=== PATIENT | female | born 1945 | race Caucasian/White ===

== ENCOUNTER 2023-04-30 11:43 | Inpatient (IN) | payer MEDICARE, OTHER ==
[~2023-04-30] VITALS: Ht 154.9 cm; Wt 41.6 kg
[2023-04-30 12:10] VITALS: PULSE 88; RESP 18; O2SAT 96
[2023-04-30 14:09] LABS: Alkaline Phosphatase 84 U/L (46-116); Anion Gap 6 (5-15); Aspartate Aminotransferase 12 U/L (13-40); BUN/Creatinine Ratio 16.7 (10.0-20.0); Bilirubin, Total 0.2 mg/dL (0.2-1.0); Blood Urea Nitrogen 16 mg/dL (9-23); Carbon Dioxide 29 mmol/L (20-30); Chloride 104 mmol/L (98-107); Glucose 103 mg/dL (74-106); Potassium 4.2 mmol/L (3.5-5.1); Sodium 139 mmol/L (136-145); Total Protein 7.2 g/dL (5.7-8.2)
[2023-04-30 14:11] LABS: Alanine Aminotransferase < 9 U/L (7-40)
[2023-04-30 14:17] LABS: Basophils # (auto) 0.1 10 ^3/uL (0-0.2); Basophils % (auto) 0.4 % (0.0-2.0); Eosinophils # (auto) 0 10 ^3/uL (0-0.8); Eosinophils % (auto) 0.1 % (0.0-7.0); Hemoglobin 11.1 g/dL (12.2-16.2); Lymphocytes # (auto) 0.3 10 ^3/uL (0.4-5.4); Lymphocytes % (auto) 2.6 % (10.0-50.0); Mean Corpuscular Hemoglobin 28.2 pg (28.0-32.0); Mean Corpuscular Hgb Conc. 31.7 g/dL (32.0-36.0); Monocytes # (auto) 0.4 10 ^3/uL (0-1.3); Monocytes % (auto) 3.3 % (0.0-12.0); Neutrophils % (auto) 93.6 % (37.0-80.0); Red Blood Cells 3.93 10^6/uL (4.0-5.20); Red Cell Distribution Width 13.9 % (11.8-14.3); White Blood Cell 12.8 10^3/uL (4.4-10.8)
[2023-04-30] MEDS ORDERED: cefTRIAXone 1GM/50ML D5W 50 ML IV ONE (15:45)
[2023-04-30] MEDS ORDERED: MORPHINE SULFATE INJ 2 MG/ml SYRG IV PRN (16:00)
[2023-04-30] MEDS ORDERED: SODIUM CHLORIDE 0.9% 1,000 ML IV ONE (16:00)
[2023-04-30] MEDS ORDERED: NITROGLYCERIN 0.4 MG SL TAB SL PRN (16:00)
[2023-04-30 19:45] VITALS: PULSE 109; RESP 31; O2SAT 95
[2023-05-01 07:38] VITALS: PULSE 68; RESP 18; O2SAT 95
[2023-05-01] MEDS: cefTRIAXone 1GM/50ML D5W 50 ML IV SCH (09:46)
[2023-05-01] MEDS ORDERED: amLODIPine BESYLATE 5 MG TAB PO ONE (14:15)
[2023-05-01] MEDS ORDERED: amLODIPine BESYLATE 5 MG TAB ONE (14:43)
[2023-05-01 14:48] LABS: Basophils # (auto) 0 10 ^3/uL (0-0.2); Basophils % (auto) 0.5 % (0.0-2.0); Eosinophils # (auto) 0 10 ^3/uL (0-0.8); Eosinophils % (auto) 0.4 % (0.0-7.0); Hematocrit 34.5 % (36.0-46.0); Lymphocytes # (auto) 1.3 10 ^3/uL (0.4-5.4); Lymphocytes % (auto) 15.7 % (10.0-50.0); Mean Corpuscular Hemoglobin 28.9 pg (28.0-32.0); Mean Corpuscular Hgb Conc. 31.8 g/dL (32.0-36.0); Mean Corpuscular Volume 90.9 fL (80.0-100.0); Monocytes # (auto) 0.6 10 ^3/uL (0-1.3); Monocytes % (auto) 7.1 % (0.0-12.0); Neutrophils # (auto) 6.5 10 ^3/uL (1.6-8.6); Neutrophils % (auto) 76.3 % (37.0-80.0); Nucleated Red Blood Cells % 0.2 %; Red Blood Cells 3.79 10^6/uL (4.0-5.20); Red Cell Distribution Width 13.9 % (11.8-14.3); White Blood Cell 8.5 10^3/uL (4.4-10.8)
[2023-05-01] MEDS: Ensure Enlive Strawberry 8oz Bottle PO SCH (18:00)
[2023-05-01] MEDS: SODIUM CHLORIDE 0.9% 1,000 ML IV SCH (18:19)
[2023-05-01 18:25] VITALS: BP 167/93; PULSE 54; PULSE 61; RESP 16; RESP 22; TEMP 98.1; O2SAT 95
[2023-05-01 20:00] VITALS: PULSE 109; RESP 18; O2SAT 94
[2023-05-01 22:00] VITALS: BP 169/89; PULSE 100; RESP 16; TEMP 98.1; O2SAT 90
[2023-05-02] VITALS (7 sets, daily range): BP systolic 104–128; BP diastolic 54–69; PULSE 78–117; RESP 16–20; TEMP 97.4–98.3; O2SAT 93–95
[2023-05-02 06:21] LABS: Basophils # (auto) 0 10 ^3/uL (0-0.2); Basophils % (auto) 0.5 % (0.0-2.0); Eosinophils # (auto) 0.1 10 ^3/uL (0-0.8); Eosinophils % (auto) 0.8 % (0.0-7.0); Hematocrit 34.5 % (36.0-46.0); Hemoglobin 10.9 g/dL (12.2-16.2); Lymphocytes # (auto) 0.7 10 ^3/uL (0.4-5.4); Mean Corpuscular Hemoglobin 28.6 pg (28.0-32.0); Mean Corpuscular Hgb Conc. 31.7 g/dL (32.0-36.0); Mean Corpuscular Volume 90.3 fL (80.0-100.0); Monocytes # (auto) 0.7 10 ^3/uL (0-1.3); Monocytes % (auto) 9.4 % (0.0-12.0); Neutrophils # (auto) 6.2 10 ^3/uL (1.6-8.6); Neutrophils % (auto) 80.3 % (37.0-80.0); Nucleated Red Blood Cells % 0.1 %; Red Blood Cells 3.82 10^6/uL (4.0-5.20); Red Cell Distribution Width 13.8 % (11.8-14.3); White Blood Cell 7.8 10^3/uL (4.4-10.8)
[2023-05-02 06:24] LABS: Calcium 8.6 mg/dL (8.7-10.4); Chloride 104 mmol/L (98-107); Potassium 3.7 mmol/L (3.5-5.1); Sodium 136 mmol/L (136-145)
[2023-05-02 06:25] LABS: Anion Gap 9 (5-15); Carbon Dioxide 23 mmol/L (20-30)
[2023-05-02 06:30] LABS: BUN/Creatinine Ratio 14.5 (10.0-20.0); Blood Urea Nitrogen 12 mg/dL (9-23); Glucose 93 mg/dL (74-106)
[2023-05-02] MEDS: Ensure Enlive Strawberry 8oz Bottle PO SCH ×3 (08:00→18:14)
[2023-05-02] MEDS: SODIUM CHLORIDE 0.9% 1,000 ML IV SCH ×2 (10:00→16:55)
[2023-05-02] MEDS: cefTRIAXone 1GM/50ML D5W 50 ML IV SCH (10:21)
[2023-05-02] MEDS: amLODIPine BESYLATE 5 MG TAB PO SCH (10:21)
[2023-05-02] MEDS ORDERED: MORPHINE SULFATE INJ 2 MG/ml SYRG IV PRN (14:00)
[2023-05-02 14:47] LABS: Urine Bacteria MANY /hpf (None Seen); Urine Blood 2+ /uL (Negative); Urine Clarity CLOUDY (Clear); Urine Color Red (Yellow); Urine Mucus MANY (None Seen); Urine Protein, UAD 2+ (Negative); Urine Urobilinogen Normal (Negative); Urine WBC 612 /hpf (0 - 5); Urine WBC Clumps PRESENT /hpf (None Seen); Urine pH 6.5 (5.0-8.0)
[2023-05-02 14:52] LABS: Urine Specific Gravity 1.024 (1.001-1.035)
[2023-05-02] MEDS: ACETAMINOPHEN 500 MG TAB PO PRN (15:20)
[2023-05-02] MEDS ORDERED: ACETAMINOPHEN 500 MG TAB PO ONE (15:20)
[2023-05-02] MEDS ORDERED: IOHEXOL 300 MG/ML 100ML BOTTLE IJ ONE (16:34)
[2023-05-03] VITALS (7 sets, daily range): BP systolic 123–142; BP diastolic 66–78; PULSE 92–126; RESP 14–20; TEMP 97.6–98.8; O2SAT 94–98
[2023-05-03] MEDS: SODIUM CHLORIDE 0.9% 1,000 ML IV SCH (00:30)
[2023-05-03 05:49] LABS: Basophils # (auto) 0 10 ^3/uL (0-0.2); Basophils % (auto) 0.4 % (0.0-2.0); Eosinophils # (auto) 0.1 10 ^3/uL (0-0.8); Eosinophils % (auto) 0.8 % (0.0-7.0); Hematocrit 28.6 % (36.0-46.0); Hemoglobin 9.5 g/dL (12.2-16.2); Lymphocytes % (auto) 11.3 % (10.0-50.0); Mean Corpuscular Hemoglobin 28.8 pg (28.0-32.0); Mean Corpuscular Volume 87.2 fL (80.0-100.0); Monocytes # (auto) 0.7 10 ^3/uL (0-1.3); Monocytes % (auto) 8.1 % (0.0-12.0); Neutrophils # (auto) 6.8 10 ^3/uL (1.6-8.6); Neutrophils % (auto) 79.4 % (37.0-80.0); Nucleated Red Blood Cells % 0.1 %; Red Blood Cells 3.28 10^6/uL (4.0-5.20); Red Cell Distribution Width 13.6 % (11.8-14.3); White Blood Cell 8.6 10^3/uL (4.4-10.8)
[2023-05-03 06:06] LABS: Chloride 106 mmol/L (98-107); Potassium 3.8 mmol/L (3.5-5.1); Sodium 138 mmol/L (136-145)
[2023-05-03 06:08] LABS: Anion Gap 5 (5-15); Calcium 8.3 mg/dL (8.7-10.4); Carbon Dioxide 27 mmol/L (20-30)
[2023-05-03 06:13] LABS: Blood Urea Nitrogen 15 mg/dL (9-23); Glucose 107 mg/dL (74-106)
[2023-05-03] MEDS: Ensure Enlive Strawberry 8oz Bottle PO SCH ×3 (08:00→18:00)
[2023-05-03] MEDS ORDERED: HYDROcodone-ACET 5/325MG TAB ONE ×2 (11:35→17:40)
[2023-05-03] MEDS ORDERED: amLODIPine BESYLATE 5 MG TAB ONE (11:35)
[2023-05-03] MEDS ORDERED: cefTRIAXone 1GM/50ML D5W 50 ML IV ONE (11:36)
[2023-05-03] MEDS: amLODIPine BESYLATE 5 MG TAB PO SCH (11:39)
[2023-05-03] MEDS: cefTRIAXone 1GM/50ML D5W 50 ML IV SCH (11:40)
[2023-05-03] MEDS: HYDROcodone-ACET 5/325MG TAB PO PRN ×2 (11:40→17:41)
[2023-05-04] VITALS (7 sets, daily range): BP systolic 128–134; BP diastolic 62–72; PULSE 90–104; RESP 17–18; TEMP 98.3–99.1; O2SAT 93–96
[2023-05-04] MEDS: Ensure Enlive Strawberry 8oz Bottle PO SCH ×3 (08:00→20:32)
[2023-05-04] MEDS: amLODIPine BESYLATE 5 MG TAB PO SCH (10:26)
[2023-05-04] MEDS: cefTRIAXone 1GM/50ML D5W 50 ML IV SCH (10:26)
[2023-05-04] MEDS: SODIUM CHLORIDE 0.9% 1,000 ML IV SCH ×2 (10:27→10:29)
[2023-05-04] MEDS: HYDROcodone-ACET 5/325MG TAB PO PRN (12:17)
[2023-05-04] MEDS: ACETAMINOPHEN 500 MG TAB PO PRN (16:37)
[2023-05-05] VITALS (7 sets, daily range): BP systolic 112–128; BP diastolic 57–72; PULSE 92–113; RESP 17–18; TEMP 98.1–98.3; O2SAT 92–93
[2023-05-05] MEDS: SODIUM CHLORIDE 0.9% 1,000 ML IV SCH ×2 (01:37→16:52)
[2023-05-05] MEDS: Ensure Enlive Strawberry 8oz Bottle PO SCH ×3 (08:00→18:00)
[2023-05-05 09:20] LABS: Basophils # (auto) 0 10 ^3/uL (0-0.2); Basophils % (auto) 0.6 % (0.0-2.0); Eosinophils # (auto) 0.2 10 ^3/uL (0-0.8); Hemoglobin 10.2 g/dL (12.2-16.2); Lymphocytes # (auto) 0.9 10 ^3/uL (0.4-5.4); Lymphocytes % (auto) 11.9 % (10.0-50.0); Mean Corpuscular Volume 88.1 fL (80.0-100.0); Monocytes # (auto) 0.5 10 ^3/uL (0-1.3); Monocytes % (auto) 7.1 % (0.0-12.0); Neutrophils % (auto) 78.4 % (37.0-80.0); Nucleated Red Blood Cells % 0.1 %; Red Blood Cells 3.52 10^6/uL (4.0-5.20); Red Cell Distribution Width 13.7 % (11.8-14.3); White Blood Cell 7.7 10^3/uL (4.4-10.8)
[2023-05-05] MEDS ORDERED: IOTHALAMATE MEGLUMINE INJ 250ML BOT UR ONE (09:34)
[2023-05-05 09:39] LABS: Chloride 102 mmol/L (98-107); Potassium 4.6 mmol/L (3.5-5.1); Sodium 137 mmol/L (136-145)
[2023-05-05 09:40] LABS: Anion Gap 6 (5-15); Carbon Dioxide 29 mmol/L (20-30)
[2023-05-05 09:45] LABS: BUN/Creatinine Ratio 17.2 (10.0-20.0); Blood Urea Nitrogen 15 mg/dL (9-23); Glucose 136 mg/dL (74-106)
[2023-05-05] MEDS: cefTRIAXone 1GM/50ML D5W 50 ML IV SCH (11:05)
[2023-05-05] MEDS: ACETAMINOPHEN 500 MG TAB PO PRN (11:05)
[2023-05-05] MEDS: amLODIPine BESYLATE 5 MG TAB PO SCH (11:18)
[2023-05-05] MEDS: metroNIDAZOLE 500MG/100ML 100 ML IV SCH ×2 (16:52→21:26)
[2023-05-06] MEDS: HYDROcodone-ACET 5/325MG TAB PO PRN ×2 (00:34→20:47)
[2023-05-06] MEDS: SODIUM CHLORIDE 0.9% 1,000 ML IV SCH ×3 (04:38→14:15)
[2023-05-06 05:00] VITALS: BP 119/67; PULSE 87; RESP 20; TEMP 98.3; O2SAT 94
[2023-05-06] MEDS: metroNIDAZOLE 500MG/100ML 100 ML IV SCH ×3 (05:16→21:28)
[2023-05-06 06:17] LABS: Basophils # (auto) 0 10 ^3/uL (0-0.2); Basophils % (auto) 0.7 % (0.0-2.0); Eosinophils # (auto) 0.1 10 ^3/uL (0-0.8); Hematocrit 29.1 % (36.0-46.0); Hemoglobin 9.6 g/dL (12.2-16.2); Lymphocytes # (auto) 1.2 10 ^3/uL (0.4-5.4); Lymphocytes % (auto) 18.1 % (10.0-50.0); Mean Corpuscular Hgb Conc. 32.9 g/dL (32.0-36.0); Monocytes # (auto) 0.6 10 ^3/uL (0-1.3); Monocytes % (auto) 8.8 % (0.0-12.0); Neutrophils # (auto) 4.8 10 ^3/uL (1.6-8.6); Neutrophils % (auto) 70.4 % (37.0-80.0); Red Blood Cells 3.31 10^6/uL (4.0-5.20); Red Cell Distribution Width 13.7 % (11.8-14.3); White Blood Cell 6.8 10^3/uL (4.4-10.8)
[2023-05-06 06:26] LABS: Anion Gap 6 (5-15); Carbon Dioxide 27 mmol/L (20-30); Chloride 105 mmol/L (98-107); Potassium 4.2 mmol/L (3.5-5.1); Sodium 138 mmol/L (136-145)
[2023-05-06 06:27] LABS: Calcium 8.9 mg/dL (8.5-10.1)
[2023-05-06 06:32] LABS: Glucose 100 mg/dL (74-106)
[2023-05-06 06:33] LABS: BUN/Creatinine Ratio 19.8 (10.0-20.0); Blood Urea Nitrogen 17 mg/dL (9-23)
[2023-05-06 08:00] VITALS: BP 119/69; PULSE 93; RESP 16; TEMP 98.4; O2SAT 95
[2023-05-06] MEDS: Ensure Enlive Strawberry 8oz Bottle PO SCH ×3 (08:00→18:00)
[2023-05-06] MEDS: cefTRIAXone 1GM/50ML D5W 50 ML IV SCH (09:05)
[2023-05-06] MEDS: PHENAZOPYRIDINE HCL 100 MG TAB PO SCH (09:06)
[2023-05-06] MEDS: amLODIPine BESYLATE 5 MG TAB PO SCH (09:08)
[2023-05-06] MEDS: ACETAMINOPHEN 500 MG TAB PO PRN (11:14)
[2023-05-06 12:00] VITALS: BP 107/56; PULSE 102; RESP 16; TEMP 98.5; O2SAT 93
[2023-05-06 16:46] VITALS: BP 129/68; PULSE 102; RESP 16; TEMP 97.9; O2SAT 92
[2023-05-06 20:00] VITALS: BP 124/65; PULSE 105; RESP 20; TEMP 98.5; O2SAT 93
[2023-05-07] VITALS (7 sets, daily range): BP systolic 107–132; BP diastolic 56–64; PULSE 94–104; RESP 18–20; TEMP 97.7–98.8; O2SAT 92–98
[2023-05-07] MEDS: SODIUM CHLORIDE 0.9% 1,000 ML IV SCH ×2 (03:35→16:55)
[2023-05-07] MEDS: metroNIDAZOLE 500MG/100ML 100 ML IV SCH ×3 (05:32→21:58)
[2023-05-07 06:02] LABS: Basophils # (auto) 0.1 10 ^3/uL (0-0.2); Basophils % (auto) 0.6 % (0.0-2.0); Eosinophils # (auto) 0.2 10 ^3/uL (0-0.8); Eosinophils % (auto) 2.3 % (0.0-7.0); Hematocrit 27.9 % (36.0-46.0); Hemoglobin 9.3 g/dL (12.2-16.2); Lymphocytes # (auto) 1.1 10 ^3/uL (0.4-5.4); Lymphocytes % (auto) 11.5 % (10.0-50.0); Mean Corpuscular Hemoglobin 29.3 pg (28.0-32.0); Mean Corpuscular Hgb Conc. 33.2 g/dL (32.0-36.0); Mean Corpuscular Volume 88.2 fL (80.0-100.0); Monocytes # (auto) 0.7 10 ^3/uL (0-1.3); Monocytes % (auto) 7.3 % (0.0-12.0); Neutrophils # (auto) 7.2 10 ^3/uL (1.6-8.6); Neutrophils % (auto) 78.3 % (37.0-80.0); Nucleated Red Blood Cells % 0.1 %; Red Blood Cells 3.17 10^6/uL (4.0-5.20); Red Cell Distribution Width 13.5 % (11.8-14.3); White Blood Cell 9.2 10^3/uL (4.4-10.8)
[2023-05-07 06:15] LABS: Chloride 103 mmol/L (98-107); Potassium 4.2 mmol/L (3.5-5.1); Sodium 136 mmol/L (136-145)
[2023-05-07 06:16] LABS: Anion Gap 7 (5-15); Carbon Dioxide 26 mmol/L (20-30)
[2023-05-07 06:17] LABS: Calcium 8.8 mg/dL (8.5-10.1)
[2023-05-07 06:21] LABS: Glucose 98 mg/dL (74-106)
[2023-05-07 06:22] LABS: Blood Urea Nitrogen 16 mg/dL (9-23)
[2023-05-07] MEDS: Ensure Enlive Strawberry 8oz Bottle PO SCH ×3 (08:00→17:23)
[2023-05-07] MEDS: cefTRIAXone 1GM/50ML D5W 50 ML IV SCH (09:41)
[2023-05-07] MEDS: amLODIPine BESYLATE 5 MG TAB PO SCH (09:41)
[2023-05-07] MEDS: PHENAZOPYRIDINE HCL 100 MG TAB PO SCH (09:42)
[2023-05-07] MEDS ORDERED: IOTHALAMATE MEGLUMINE INJ 250ML BOT UR ONE ×2 (10:51→11:59)
[2023-05-08 05:00] VITALS: BP 128/60; PULSE 88; RESP 18; TEMP 98; O2SAT 96
[2023-05-08] MEDS: metroNIDAZOLE 500MG/100ML 100 ML IV SCH ×3 (05:15→21:12)
[2023-05-08] MEDS: SODIUM CHLORIDE 0.9% 1,000 ML IV SCH ×2 (06:45→21:12)
[2023-05-08 06:57] LABS: Chloride 103 mmol/L (98-107); Sodium 136 mmol/L (136-145)
[2023-05-08 06:58] LABS: Anion Gap 8 (5-15); Basophils # (auto) 0 10 ^3/uL (0-0.2); Basophils % (auto) 0.6 % (0.0-2.0); Carbon Dioxide 25 mmol/L (20-30); Eosinophils # (auto) 0.1 10 ^3/uL (0-0.8); Eosinophils % (auto) 1.9 % (0.0-7.0); Hematocrit 28.6 % (36.0-46.0); Hemoglobin 9.4 g/dL (12.2-16.2); Lymphocytes # (auto) 1.1 10 ^3/uL (0.4-5.4); Lymphocytes % (auto) 14.9 % (10.0-50.0); Mean Corpuscular Hemoglobin 28.8 pg (28.0-32.0); Mean Corpuscular Volume 87.4 fL (80.0-100.0); Monocytes # (auto) 0.7 10 ^3/uL (0-1.3); Monocytes % (auto) 9.4 % (0.0-12.0); Neutrophils # (auto) 5.5 10 ^3/uL (1.6-8.6); Neutrophils % (auto) 73.2 % (37.0-80.0); Nucleated Red Blood Cells % 0.1 %; Red Blood Cells 3.27 10^6/uL (4.0-5.20); Red Cell Distribution Width 13.5 % (11.8-14.3); White Blood Cell 7.6 10^3/uL (4.4-10.8)
[2023-05-08 06:59] LABS: Calcium 8.7 mg/dL (8.5-10.1)
[2023-05-08 07:03] LABS: BUN/Creatinine Ratio 18.8 (10.0-20.0); Blood Urea Nitrogen 15 mg/dL (9-23); Glucose 91 mg/dL (74-106)
[2023-05-08 08:00] VITALS: BP 111/54; PULSE 87; RESP 17; TEMP 98.4
[2023-05-08] MEDS: Ensure Enlive Strawberry 8oz Bottle PO SCH ×3 (08:00→18:07)
[2023-05-08 09:00] VITALS: BP 111/54; PULSE 92; RESP 17; TEMP 98.4; O2SAT 92
[2023-05-08] MEDS: cefTRIAXone 1GM/50ML D5W 50 ML IV SCH (09:12)
[2023-05-08] MEDS: PHENAZOPYRIDINE HCL 100 MG TAB PO SCH (09:12)
[2023-05-08] MEDS: amLODIPine BESYLATE 5 MG TAB PO SCH (09:13)
[2023-05-08 13:00] VITALS: BP 105/63; PULSE 103; RESP 16; TEMP 98.6; O2SAT 91
[2023-05-08] MEDS ORDERED: HYDROcodone-ACET 5/325MG TAB ONE (18:06)
[2023-05-08] MEDS: HYDROcodone-ACET 5/325MG TAB PO PRN (18:07)
[2023-05-08 20:00] VITALS: PULSE 104; PULSE 82; RESP 18
[2023-05-08 21:59] VITALS: BP 106/61; PULSE 82; RESP 18; TEMP 98.2; O2SAT 94
[2023-05-09] VITALS (7 sets, daily range): BP systolic 105–118; BP diastolic 57–70; PULSE 78–109; RESP 17–20; TEMP 97.5–98.7; O2SAT 92–97
[2023-05-09] MEDS: metroNIDAZOLE 500MG/100ML 100 ML IV SCH ×3 (05:14→21:22)
[2023-05-09] MEDS: Ensure Enlive Strawberry 8oz Bottle PO SCH ×3 (08:00→15:02)
[2023-05-09] MEDS: cefTRIAXone 1GM/50ML D5W 50 ML IV SCH (09:49)
[2023-05-09] MEDS: amLODIPine BESYLATE 5 MG TAB PO SCH (09:50)
[2023-05-09] MEDS: PHENAZOPYRIDINE HCL 100 MG TAB PO SCH (09:50)
[2023-05-09] MEDS: SODIUM CHLORIDE 0.9% 1,000 ML IV SCH ×2 (09:51→19:53)
[2023-05-09] MEDS ORDERED: GASTROGRAFIN 120 ML SOL ONE (11:51)
[2023-05-10 05:00] VITALS: BP 111/61; PULSE 99; RESP 17; TEMP 98.6; O2SAT 93
[2023-05-10] MEDS: metroNIDAZOLE 500MG/100ML 100 ML IV SCH ×3 (05:28→21:04)
[2023-05-10 06:53] LABS: Basophils # (auto) 0.1 10 ^3/uL (0-0.2); Basophils % (auto) 0.9 % (0.0-2.0); Eosinophils # (auto) 0.1 10 ^3/uL (0-0.8); Eosinophils % (auto) 1.3 % (0.0-7.0); Hematocrit 28.8 % (36.0-46.0); Hemoglobin 9.2 g/dL (12.2-16.2); Lymphocytes # (auto) 1.3 10 ^3/uL (0.4-5.4); Mean Corpuscular Hemoglobin 28.2 pg (28.0-32.0); Mean Corpuscular Hgb Conc. 32.1 g/dL (32.0-36.0); Monocytes # (auto) 0.8 10 ^3/uL (0-1.3); Monocytes % (auto) 10.4 % (0.0-12.0); Neutrophils # (auto) 5.8 10 ^3/uL (1.6-8.6); Neutrophils % (auto) 71.4 % (37.0-80.0); Nucleated Red Blood Cells % 0.2 %; Red Blood Cells 3.27 10^6/uL (4.0-5.20); Red Cell Distribution Width 13.6 % (11.8-14.3); White Blood Cell 8.1 10^3/uL (4.4-10.8)
[2023-05-10 07:55] LABS: Anion Gap 9 (5-15); BUN/Creatinine Ratio 17.9 (10.0-20.0); Blood Urea Nitrogen 14 mg/dL (9-23); Calcium 8.6 mg/dL (8.5-10.1); Carbon Dioxide 23 mmol/L (20-30); Chloride 106 mmol/L (98-107); Glucose 92 mg/dL (74-106); Potassium 4.2 mmol/L (3.5-5.1); Sodium 138 mmol/L (136-145)
[2023-05-10 08:00] VITALS: PULSE 87; RESP 18; O2SAT 92
[2023-05-10] MEDS: Ensure Enlive Strawberry 8oz Bottle PO SCH ×3 (08:00→18:11)
[2023-05-10 08:55] VITALS: BP 103/64; PULSE 88; RESP 14; TEMP 98.5; O2SAT 96
[2023-05-10] MEDS: PHENAZOPYRIDINE HCL 100 MG TAB PO SCH (09:14)
[2023-05-10] MEDS: cefTRIAXone 1GM/50ML D5W 50 ML IV SCH (09:15)
[2023-05-10] MEDS: SODIUM CHLORIDE 0.9% 1,000 ML IV SCH (09:20)
[2023-05-10] MEDS: amLODIPine BESYLATE 5 MG TAB PO SCH (10:00)
[2023-05-10 13:00] VITALS: BP 113/59; PULSE 87; RESP 16; TEMP 98.2; O2SAT 92
[2023-05-10] MEDS: HYDROcodone-ACET 5/325MG TAB PO PRN (15:40)
[2023-05-10 17:00] VITALS: BP 100/54; PULSE 100; RESP 14; TEMP 98.6; O2SAT 95
[2023-05-10 20:00] VITALS: PULSE 100; PULSE 98; RESP 18; O2SAT 100
[2023-05-11] MEDS: SODIUM CHLORIDE 0.9% 1,000 ML IV SCH ×2 (00:18→14:20)
[2023-05-11 05:00] VITALS: BP 116/66; PULSE 96; RESP 18; TEMP 98.3; O2SAT 92
[2023-05-11] MEDS: metroNIDAZOLE 500MG/100ML 100 ML IV SCH ×3 (05:51→21:15)
[2023-05-11 08:00] VITALS: PULSE 84; RESP 18; O2SAT 92
[2023-05-11] MEDS: Ensure Enlive Strawberry 8oz Bottle PO SCH ×3 (08:00→18:00)
[2023-05-11] MEDS: cefTRIAXone 1GM/50ML D5W 50 ML IV SCH (08:44)
[2023-05-11] MEDS: PHENAZOPYRIDINE HCL 100 MG TAB PO SCH (08:58)
[2023-05-11] MEDS: amLODIPine BESYLATE 5 MG TAB PO SCH (08:58)
[2023-05-11 09:00] VITALS: BP 109/56; PULSE 86; RESP 19; TEMP 98.1; O2SAT 93
[2023-05-11 17:00] VITALS: BP 109/60; PULSE 98; RESP 19; TEMP 98.4; O2SAT 99
[2023-05-11] MEDS: HYDROcodone-ACET 5/325MG TAB PO PRN (18:40)
[2023-05-11 20:00] VITALS: PULSE 103; RESP 18; O2SAT 91
[2023-05-11 22:00] VITALS: BP 116/62; PULSE 104; RESP 18; TEMP 98.4; O2SAT 91
[2023-05-12] VITALS (7 sets, daily range): BP systolic 103–136; BP diastolic 52–66; PULSE 90–110; RESP 16–18; TEMP 97.4–98.7; O2SAT 90–98
[2023-05-12] MEDS: SODIUM CHLORIDE 0.9% 1,000 ML IV SCH ×2 (05:34→17:40)
[2023-05-12] MEDS: metroNIDAZOLE 500MG/100ML 100 ML IV SCH ×3 (05:35→21:56)
[2023-05-12] MEDS: Ensure Enlive Strawberry 8oz Bottle PO SCH ×3 (08:00→18:12)
[2023-05-12] MEDS: PHENAZOPYRIDINE HCL 100 MG TAB PO SCH (09:00)
[2023-05-12] MEDS: cefTRIAXone 1GM/50ML D5W 50 ML IV SCH (09:00)
[2023-05-12] MEDS: amLODIPine BESYLATE 5 MG TAB PO SCH (09:01)
[2023-05-12] MEDS: HYDROcodone-ACET 5/325MG TAB PO PRN (09:02)
[2023-05-12] MEDS ORDERED: MAGNESIUM CITRATE SOLUTION 300 ML BTL PO ONE (17:00)
[2023-05-12] MEDS ORDERED: GOLYTELY 4L KIT PO ONE (18:00)
[2023-05-12] MEDS: ACETAMINOPHEN 500 MG TAB PO PRN (18:53)
[2023-05-12] MEDS: ONDANSETRON HCL 4 MG/2 ML VIAL IV PRN (20:47)
[2023-05-13] VITALS (8 sets, daily range): BP systolic 102–142; BP diastolic 51–67; PULSE 89–104; RESP 17–20; TEMP 97.8–98.9; O2SAT 90–92
[2023-05-13 02:45] LABS: INR 1.12 (0.9-1.15); Partial Thromboplastin Time 29.1 SEC (24.5-34.5); Prothrombin Time 11.7 sec (9.3-11.8)
[2023-05-13] MEDS ORDERED: MAGNESIUM CITRATE SOLUTION 300 ML BTL PO ONE (06:00)
[2023-05-13] MEDS: metroNIDAZOLE 500MG/100ML 100 ML IV SCH ×3 (06:22→21:50)
[2023-05-13] MEDS: SODIUM CHLORIDE 0.9% 1,000 ML IV SCH ×2 (06:26→19:35)
[2023-05-13] MEDS: Ensure Enlive Strawberry 8oz Bottle PO SCH ×3 (08:00→18:00)
[2023-05-13] MEDS: PHENAZOPYRIDINE HCL 100 MG TAB PO SCH (08:54)
[2023-05-13] MEDS: cefTRIAXone 1GM/50ML D5W 50 ML IV SCH (08:54)
[2023-05-13] MEDS: amLODIPine BESYLATE 5 MG TAB PO SCH (08:55)
[2023-05-13] MEDS: ONDANSETRON HCL 4 MG/2 ML VIAL IV PRN (16:49)
[2023-05-13] MEDS: HYDROcodone-ACET 5/325MG TAB PO PRN (16:50)
[2023-05-14] VITALS (10 sets, daily range): BP systolic 110–145; BP diastolic 53–66; PULSE 77–99; RESP 10–19; TEMP 97.8–98.3; O2SAT 85–97
[2023-05-14] MEDS ORDERED: MAGNESIUM CITRATE SOLUTION 300 ML BTL PO ONE (06:00)
[2023-05-14] MEDS: metroNIDAZOLE 500MG/100ML 100 ML IV SCH ×3 (06:03→21:36)
[2023-05-14] MEDS: Ensure Enlive Strawberry 8oz Bottle PO SCH ×3 (08:30→18:07)
[2023-05-14] MEDS: cefTRIAXone 1GM/50ML D5W 50 ML IV SCH (09:41)
[2023-05-14] MEDS: PHENAZOPYRIDINE HCL 100 MG TAB PO SCH (09:41)
[2023-05-14] MEDS: amLODIPine BESYLATE 5 MG TAB PO SCH (09:41)
[2023-05-14] MEDS: SODIUM CHLORIDE 0.9% 1,000 ML IV SCH ×2 (09:42→12:55)
[2023-05-14 13:47] LABS: Hematocrit 29.6 % (36.0-46.0); Hemoglobin 9.6 g/dL (12.2-16.2); Lymphocytes # (auto) 1.1 10 ^3/uL (0.4-5.4); Monocytes # (auto) 0.4 10 ^3/uL (0-1.3); Nucleated Red Blood Cells % 0.1 %; Red Cell Distribution Width 14.3 % (11.8-14.3)
[2023-05-14 13:49] LABS: Basophils # (auto) 0 10 ^3/uL (0-0.2); Basophils % (auto) 0.7 % (0.0-2.0); Eosinophils # (auto) 0.1 10 ^3/uL (0-0.8); Eosinophils % (auto) 0.8 % (0.0-7.0); Lymphocytes % (auto) 15.8 % (10.0-50.0); Mean Corpuscular Hemoglobin 29.1 pg (28.0-32.0); Mean Corpuscular Hgb Conc. 32.4 g/dL (32.0-36.0); Mean Corpuscular Volume 89.9 fL (80.0-100.0); Monocytes % (auto) 6.4 % (0.0-12.0); Neutrophils # (auto) 5.1 10 ^3/uL (1.6-8.6); Neutrophils % (auto) 76.3 % (37.0-80.0); Red Blood Cells 3.29 10^6/uL (4.0-5.20); White Blood Cell 6.7 10^3/uL (4.4-10.8)
[2023-05-14 14:00] LABS: Anion Gap 7 (5-15); Carbon Dioxide 26 mmol/L (20-30); Chloride 106 mmol/L (98-107); Potassium 4.4 mmol/L (3.5-5.1); Sodium 139 mmol/L (136-145)
[2023-05-14 14:01] LABS: Calcium 8.6 mg/dL (8.5-10.1)
[2023-05-14 14:06] LABS: BUN/Creatinine Ratio 11.8 (10.0-20.0); Blood Urea Nitrogen 10 mg/dL (9-23); Glucose 95 mg/dL (74-106)
[2023-05-14] MEDS ORDERED: MIDAZOLAM HCL 2MG/2ML 2ml VIAL (1mg/ml) ONE (14:39)
[2023-05-14] MEDS ORDERED: fentaNYL CITRATE 100 MCG/2 ML VL ONE (14:39)
[2023-05-15] VITALS (7 sets, daily range): BP systolic 99–115; BP diastolic 55–59; PULSE 74–92; RESP 16–18; TEMP 97.6–98.4; O2SAT 93–95
[2023-05-15] MEDS: metroNIDAZOLE 500MG/100ML 100 ML IV SCH ×3 (05:53→21:33)
[2023-05-15] MEDS: Ensure Enlive Strawberry 8oz Bottle PO SCH ×3 (07:55→18:42)
[2023-05-15] MEDS: cefTRIAXone 1GM/50ML D5W 50 ML IV SCH (09:38)
[2023-05-15] MEDS: PHENAZOPYRIDINE HCL 100 MG TAB PO SCH (09:38)
[2023-05-15] MEDS: amLODIPine BESYLATE 5 MG TAB PO SCH (09:38)
[2023-05-15] MEDS: SODIUM CHLORIDE 0.9% 1,000 ML IV SCH (13:30)
[2023-05-15] MEDS: HYDROcodone-ACET 5/325MG TAB PO PRN (23:57)
[2023-05-16] MEDS: SODIUM CHLORIDE 0.9% 1,000 ML IV SCH ×2 (00:55→10:00)
[2023-05-16 05:00] VITALS: BP 124/70; PULSE 92; TEMP 97.9; O2SAT 97
[2023-05-16] MEDS: metroNIDAZOLE 500MG/100ML 100 ML IV SCH ×2 (06:18→13:38)
[2023-05-16] MEDS: Ensure Enlive Strawberry 8oz Bottle PO SCH ×2 (07:36→13:30)
[2023-05-16 08:00] VITALS: BP 122/67; PULSE 89; PULSE 97; RESP 19; TEMP 97.8; O2SAT 94
[2023-05-16 09:00] VITALS: BP 122/67; PULSE 97; RESP 19; TEMP 97.8; O2SAT 94
[2023-05-16] MEDS: cefTRIAXone 1GM/50ML D5W 50 ML IV SCH (09:56)
[2023-05-16] MEDS: PHENAZOPYRIDINE HCL 100 MG TAB PO SCH (09:56)
[2023-05-16] MEDS: amLODIPine BESYLATE 5 MG TAB PO SCH (09:57)
[2023-05-16 13:12] VITALS: BP 122/67; TEMP 36.6
== END 2023-05-16 15:23 | disposition hospice, home (50) | DRG 871 ==
LOC: EDBD 11:43 → ER 11:43 → TELE 16:04 → TELE-WESTW 05-01 12:36
PROVIDERS: ADMIT Nurse Practitioner Acute Care; ATTEND Nurse Practitioner Acute Care
PROC: BT1B1ZZ Fluoroscopy of Bladder and Urethra using Low Osmolar Contrast (ICD-10-PCS; 2023-05-07)
PROC: 0DBN8ZX Excision of Sigmoid Colon, Via Natural or Artificial Opening Endoscopic, Diagnostic (ICD-10-PCS; principal; 2023-05-14 14:40)
DX: A41.9 Sepsis, unspecified organism (principal); J96.01 Acute respiratory failure with hypoxia; N32.1 Vesicointestinal fistula; C34.90 Malignant neoplasm of unspecified part of unspecified bronchus or lung; R64 Cachexia; Z68.1 Body mass index [BMI] 19.9 or less, adult; R55 Syncope and collapse; K59.00 Constipation, unspecified; J43.9 Emphysema, unspecified; K63.5 Polyp of colon; R29.6 Repeated falls; Z51.5 Encounter for palliative care; Z80.8 Family history of malignant neoplasm of other organs or systems; Z82.49 Family history of ischemic heart disease and other diseases of the circulatory system; Z85.41 Personal history of malignant neoplasm of cervix uteri; Z85.819 Personal history of malignant neoplasm of unspecified site of lip, oral cavity, and pharynx; Z90.710 Acquired absence of both cervix and uterus
CPT/HCPCS: 36415; 70450; 71045; 71250; 74176; 74177; 74270; 74430; 80048; 80053; 81001; 82378; 83880; 84484; 85025; 85610; 85730; 86850; 86900; 86901; 87040; 87086; 87088; 87186; 93005; 93306; 93886; 97110; 97116; 97163; 97530; G0378; J2250; J2405; J3490